=== PATIENT | female | born 1980 | race Caucasian/White ===

== ENCOUNTER → 2019-05-19 | Outpatient (CLI) | payer OTHER | END | disposition home or self-care (01) | LOC: SJCVCIMAG 07:25 | DX: I07.1 Rheumatic tricuspid insufficiency (principal); R00.2 Palpitations; E78.5 Hyperlipidemia, unspecified; R42 Dizziness and giddiness; F41.1 Generalized anxiety disorder; O99.280 Endocrine, nutritional and metabolic diseases complicating pregnancy, unspecified trimester; E23.2 Diabetes insipidus ==